=== PATIENT | male | born 1975 | race Caucasian/White ===

== ENCOUNTER → 2017-06-26 | Outpatient (CLI) | payer BC ==
[~2017-06-26] VITALS: Ht 193 cm; Wt 124.1 kg
[~2017-06-26] MED LIST: ONDA4TAB10 SL; OXYC1TAB3 PO; TAMS0.4C59 PO
[2017-06-26 12:32] VITALS: BP 128/78; PULSE 69; Ht 193 cm; Wt 124.1 kg
== END | disposition home or self-care (01) ==
LOC: C.NEUR 12:13
PROVIDERS: ATTEND Internal Medicine Pulmonary Disease
DX: G47.33 Obstructive sleep apnea (adult) (pediatric) (principal)